=== PATIENT | male | born 1975 | race Caucasian/White ===

== ENCOUNTER 2020-12-01 18:58 | Emergency (ER) | payer BC ==
[~2020-12-01] VITALS: Ht 185.4 cm; Wt 104.5 kg
--- NOTE | 2020-12-01 19:08 | PHYS DOC ---
Past History Attending Co-Sign The patient was seen and interviewed as well as examined at the bedside. The chart was reviewed. The case was discussed. Agree with the plan of care. (CHANI CHAUHAN DO) General Adult EDM: Chief Complaint: SHORTNESS OF BREATH HPI: HPI: Patient is a 45-year-old male being seen in the ER today for chest fluttering sensation in the left side of his chest for 2 months. Patient is also reporting shortness of breath when the fluttering sensation occurs. He denies any chest pain, cough, abdominal pain, nausea, vomiting, fever. He denies any medical history. (ALEXA ALFREDO APRN) Review of Systems: Review of Systems: 14 body systems of the review of systems have been reviewed. See HPI for per tinent positive and negative responses, otherwise all other systems are negative, nonpertinent or noncontributory (ALEXA ALFREDO APRN) Allergies: Allergies: Allergies Coded Allergies Type Severity Reaction Last Updated Verified cyclobenzaprine Allergy Unknown 12/01/20 Yes (ALEXA ALFREDO APRN) Physical Exam: PE: Constitutional: Well developed, well nourished, no acute distress, non-toxic appearance. [] HENT: Normocephalic, atraumatic Eyes: PERRL, conjunctiva normal, no discharge. [] Neck: Normal range of motion, no stridor Cardiovascular:Heart rate bradycardia rhythm, no murmur [] Lungs & Thorax: Bilateral breath sounds clear to auscultation [] Abdomen: Bowel sounds normal, soft, no tenderness, no masses, no pulsatile masses. [] Skin: Warm, dry, no erythema, no rash. [] Back: No tenderness, normal range of motion Extremities: No tenderness, no cyanosis, no clubbing, ROM intact, no edema. [] Neurologic: Alert and oriented X 3, normal motor function, normal sensory function, no focal deficits noted. [] Psychologic: Affect normal, judgement normal, mood normal. [] (ALEXA ALFREDO APRN) Current Patient Data: Labs: Laboratory Tests Test 12/01/20 19:12 White Blood Count 6.2 x10^3/uL Red Blood Count 4.43 x10^6/uL Hemoglobin 14.6 g/dL Hematocrit 41.9 % Mean Corpuscular Volume 95 fL Mean Corpuscular Hemoglobin 33 pg Mean Corpuscular Hemoglobin Concent 35 g/dL Red Cell Distribution Width 13.0 % Platelet Count 190 x10^3/uL Neutrophils (%) (Auto) 53 % Lymphocytes (%) (Auto) 38 % Monocytes (%) (Auto) 7 % Eosinophils (%) (Auto) 1 % Basophils (%) (Auto) 1 % Neutrophils # (Auto) 3.3 x10^3uL Lymphocytes # (Auto) 2.3 x10^3/uL Monocytes # (Auto) 0.4 x10^3/uL Eosinophils # (Auto) 0.1 x10^3/uL Basophils # (Auto) 0.0 x10^3/uL Sodium Level 143 mmol/L Potassium Level 4.0 mmol/L Chloride Level 106 mmol/L Carbon Dioxide Level 28 mmol/L Anion Gap 9 Blood Urea Nitrogen 16 mg/dL Creatinine 1.0 mg/dL Estimated GFR (Cockcroft-Gault) 81.2 BUN/Creatinine Ratio 16 Glucose Level 90 mg/dL Calcium Level 8.8 mg/dL Total Bilirubin 0.4 mg/dL Aspartate Amino Transf (AST/SGOT) 29 U/L Alanine Aminotransferase (ALT/SGPT) 42 U/L Alkaline Phosphatase 50 U/L Total Protein 6.9 g/dL Albumin 4.1 g/dL Albumin/Globulin Ratio 1.5 (ALEXA ALFREDO APRN) EKG: EKG: EKG performed at 1906 shows sinus bradycardia no STEMI (ALEXA ALFREDO APRN) Radiology/Procedures: Radiology/Procedures: PROCEDURE: CHEST PA & LATERAL Chest, PA and Lateral: Technique: PA and lateral views of the chest were obtained. History: Left-sided chest pain. Comparison: None. Findings: The heart and pulmonary vasculature appear within normal limits. The lungs are clear. The pleural margins are clear. Impression: No acute chest process is seen. Electronically signed by: Justin Patten MD (12/01/2020 7:38 PM) [id number] DICTATED AND SIGNED BY: JUSTIN PATTEN MD DATE: 12/01/201935 CC: MATTHEW HARRISON MD; ALEXA ALFREDO APRN ~MTH0 0 (ALEXA ALFREDO APRN) Heart Score: C/O Chest Pain: Yes HEART Score for Chest Pain: HEART Score for Chest Pain Response (Comments) Value History Slighlty/Non-Suspicious 0 ECG Normal 0 Age < 45 0 Risk Factors No Risk Factors 0 Troponin < Normal Limit 0 Total 0 Risk Factors: Risk Factors: DM, Current or recent (<one month) smoker, HTN, HLP, family history of CAD, obesity. Risk Scores: Score 0 - 3: 2.5% MACE over next 6 weeks - Discharge Home Score 4 - 6: 20.3% MACE over next 6 weeks - Admit for Clinical Observation Score 7 - 10: 72.7% MACE over next 6 weeks - Early Invasive Strategies (ALEXA ALFREDO APRN) Course & Med Decision Making: Course & Med Decision Making Pertinent Labs and Imaging studies reviewed. (See chart for details) Patient is seen in the ER today for chest fluttering. His work-up in the ER consisted of blood work, EKG, and a chest x-ray. CBC CMP unremarkable. EKG shows sinus bradycardia with no STEMI. Chest x-ray is negative for any acute findings. Vital signs stable. Patient has no medical history. He has no c omplaints of chest pain. I discussed with patient all findings and diagnostic testing as well as the need to follow-up with PCP for further evaluation and treatment or return to the ER if any new or worsening symptoms. Strict return precautions were also discussed at length. Patient voiced understanding and agreement with the plan. Patient is hemodynamically stable at the time of disposition. Patient's case discussed with supervising physician. (ALEXA ALFREDO APRN) Dragon Disclaimer: Dragon Disclaimer: This electronic medical record was generated, in whole or in part, using a voice recognition dictation system. (ALEXA ALFREDO APRN) Departure Departure: Impression: Primary Impression: Palpitation Disposition: HOME / SELF CARE / HOMELESS Condition: GOOD Referrals: MATTHEW HARRISON MD (PCP) Patient Instructions: Palpitations Additional Instructions: Thank you for choosing [facility] [place] and allowing me to participate in your care. You were seen in the ER today for a fluttering sensation in your chest. As we have discussed your findings do not indicate that you are having a cardiac event at this time.Your evaluation in the ER consisted of blood work, EKG, chest x-ray. Your blood work is unremarkable. Your chest x-ray is negative for any acute findings. Your EKG shows a slower heart rate but no signs of having ACS at this time. It is necessary that you follow-up with your primary care provider tomorrow regarding your ER visit today. Please return to the ER if you develop chest pain, worsening of your fluttering sensation, shortness of breath, palpitations, lightheadedness, shortness of breath, fevers. EMERGENCY DEPARTMENT GENERAL DISCHARGE INSTRUCTIONS Thank you for coming to [facility] (ED) today and trusting us with you care. We trust that you had a positivie experience in our Emergency Department. If you wish to speak to the department management, you may call the director at [phone]. YOUR FOLLOW UP INSTRUCTIONS ARE FOLLOWS: 1. Do you have a private Doctor? If you do not have a private doctor, please ask for a resource list of physicians or clinics that may be able to assist you with follow up care. 2. The Emergency Physician has interpreted your x-rays. The X-Ray specialist will also review them. If there is a change in the findings, you will be notified in 48 hours when at all possible. 3. A lab test or culture has been done, your results will be reviewed and you will be notified if you need a change in treatment. ADDITIONAL INSTRUCTIONS AND INFORMATION: 1. Your care today has been supervised by a physician who is specially trained in emergency care. Many problems require more than one evaluation for a complete diagnosis and treatment. We recommend that you schedule your follow up appointment as recommended to ensure complete treatment of you illness or injury. If you are unable to obtain follow up care and continue to have a problem, or if your condition worsens, we recommend that you return to the ED. 2. We are not able to safely determine your condition over the phone nor are we able to give sound medical advice over the phone. For these safety reasons, if you call for medical advice we will ask you to come to the ED for further evaluation. 3. If you have any questions regarding these discharge instructions please call the ED at [phone]. SAFETY INFORMATION: In the interest of safety, wellness, and injury prevention; we encourage you to wear your sealbelt, if you smoke; quite smoking, and we encourage family to use a prot ective helmet for bicycling and other sporting events that present an increased risk for head injury. IF YOUR SYMPTOMS WORSEN OR NEW SYMPTOMS DEVELOP, OR YOU HAVE CONCERNS ABOUT YOUR CONDITION; OR IF YOUR CONDITION WORSENS WHILE YOU ARE WAITING FOR YOUR FOLLOW UP APPOINTMENT; EITHER CONTACT YOUR PRIMARY CARE DOCTOR, THE PHYSICIAN WHOSE NAME AND NUMBER YOU WERE GIVEN, OR RETURN TO THE ED IMMEDIATELY. ALEXA ALFREDO APRN Dec 01, 2020 19:08 CHANI CHAUHAN DO Dec 03, 2020 12:13
[2020-12-01 19:40] LABS: BASO % 1 % (0-3); EOS # 0.1 x10^3/uL (0.0-0.7); EOS % 1 % (0-3); HEMATOCRIT 41.9 % (39.0-53.0); HEMOGLOBIN 14.6 g/dL (13.0-17.5); LYMPH # 2.3 x10^3/uL (1.0-4.8); LYMPH % 38 % (24-48); MEAN CORPUSCULAR HEMOGLOBIN 33 pg (25-35); MEAN CORPUSCULAR HGB CONC 35 g/dL (31-37); MEAN CORPUSCULAR VOLUME 95 fL (79-100); MONO # 0.4 x10^3/uL (0.0-1.1); MONO % 7 % (0-9); NEUT # 3.3 x10^3uL (1.8-7.7); NEUT % 53 % (31-73); PLATELET COUNT 190 x10^3/uL (140-400); RED BLOOD COUNT 4.43 x10^6/uL (4.30-5.70); WHITE BLOOD COUNT 6.2 x10^3/uL (4.0-11.0)
--- NOTE | 2020-12-01 19:41 | RAD ---
Chest, PA and Lateral: Technique: PA and lateral views of the chest were obtained. History: Left-sided chest pain. Comparison: None. Findings: The heart and pulmonary vasculature appear within normal limits. The lungs are clear. The pleural ma rgins are clear. Impression: No acute chest process is seen. Electronically signed by: Justin Westfall MD (12/01/2020 7:38 PM) [id number]
[2020-12-01 19:49] VITALS: BP 111/72
[2020-12-01 19:56] LABS: CALCIUM 8.8 mg/dL (8.5-10.1); GFR 81.2
[2020-12-01 20:02] LABS: ALBUMIN 4.1 g/dL (3.4-5.0); ALBUMIN/GLOBULIN RATIO 1.5 (1.0-1.7); TOTAL BILIRUBIN 0.4 mg/dL (0.2-1.0); TOTAL PROTEIN 6.9 g/dL (6.4-8.2)
--- NOTE | 2020-12-01 21:17 | EKG ---
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
== END 2020-12-01 20:56 | disposition home or self-care (01) ==
LOC: ER 18:58
DX: R00.2 Palpitations (principal); R06.02 Shortness of breath; Z88.8 Allergy status to other drugs, medicaments and biological substances
CPT/HCPCS: 36415; 71046; 80053; 84484; 85025; 93005; 99285

== ENCOUNTER 2021-07-19 22:56 | Emergency (ER) | payer BC ==
[~2021-07-19] VITALS: Ht 185.4 cm; Wt 104.5 kg
--- NOTE | 2021-07-19 23:25 | EKG ---
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
--- NOTE | 2021-07-19 23:29 | PHYS DOC ---
Past History Past Surgical History: Other Additional Past Surgical Histo: right knee surgery Alcohol Use: Occasionally General Adult EDM: Chief Complaint: SHORTNESS OF BREATH HPI: HPI: 46-year-old male presents with coughing and shortness of breath. The patient was feeling well earlier today. 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 He has had a cough with a scant amount of red blood. This was also accompanied by some central chest heaviness so the patient decided come in for evaluation. He has no history of chest pain or shortness of breath in the past. No history of asthma or COPD. He has not a smoker. No current chest pain at this time. Review of Systems: Review of Systems: Constitutional: Denies fever or chills Eyes: Denies change in visual acuity HENT: Denies nasal congestion or sore throat Respiratory: Cough with shortness of breath Cardiovascular: Chest pain now resolved. GI: Denies abdominal pain, nausea, vomiting, bloody stools or diarrhea : Denies dysuria Musculoskeletal: Denies back pain or joint pain Integument: Denies rash Neurologic: Denies headache, focal weakness or sensory changes Endocrine: Denies polyuria or polydipsia Lymphatic: Denies swollen glands Psychiatric: Denies depression or anxiety Allergies: Allergies: Allergies Coded Allergies Type Severity Reaction Last Updated Verified cyclobenzaprine Allergy Unknown 12/01/20 Yes Physical Exam: PE: Constitutional: Well developed, well nourished, obese, no acute distress, non- toxic appearance. [] HENT: Normocephalic, atraumatic, bilateral external ears normal, oropharynx moist, no oral exudates, nose normal. [] Eyes: PERRLA, EOMI, conjunctiva normal, no discharge. [] Neck: Normal range of motion, no tenderness, supple, no stridor. [] Cardiovascular: Heart rate regular rhythm, no murmur [] Lungs & Thorax: Bilateral breath sounds clear to auscultation [] Abdomen: Bowel sounds normal, soft, no tenderness, no masses, no pulsatile masses. [] Skin: Warm, dry, no erythema, no rash. [] Back: No tenderness, no CVA tenderness. [] Extremities: No tenderness, no cyanosis, no clubbing, ROM intact, no edema. [] Neurologic: Alert and oriented X 3, normal motor function, normal sensory function, no focal deficits noted. [] Psychologic: Affect normal, judgement normal, mood concerned. [] Current Patient Data: Vital Signs: Vital Signs Date Time Temp Pulse Resp B/P (MAP) Pulse Ox O2 Delivery O2 Flow Rate FiO2 07/19/21 22:56 98.6 85 18 147/93 (111) 96 Room Air EKG: EKG: [] Radiology/Procedures: Radiology/Procedures: [] Impressions: EXAM: XR CHEST 1V 07/19/2021 11:31 PM CLINICAL INDICATION: Shortness of breath COMPARISON: Chest radiograph 12/01/2020 TECHNIQUE: AP upright view of the chest FINDINGS: The heart and mediastinum are normal. Lungs are well-expanded. There are new mild bibasilar opacities, greater on the left. No pleural effusion or pneumothorax. No acute osseous abnormality. IMPRESSION: New mild bibasilar opacities suspicious for pneumonia, greater on the left. Electronically signed by: Marilin Alonzo MD (07/20/2021 12:24 AM) [facility] DICTATED AND SIGNED BY: MARILIN ALONZO MD DATE: 07/20/21 0023 CC: CHANI CHAUHAN DO; MATTHEW HARRISON MD ~MTH0 0 Heart Score: C/O Chest Pain: Yes HEART Score for Chest Pain: HEART Score for Chest Pain Response (Comments) Value History Slighlty/Non-Suspicious 0 ECG Normal 0 Age >45 - < 65 1 Risk Factors 1 or 2 Risk Factors 1 Troponin < Normal Limit 0 Total 2 Risk Factors: Risk Factors: DM, Current or recent (<one month) smoker, HTN, HLP, family history of CAD, obesity. Risk Scores: Score 0 - 3: 2.5% MACE over next 6 weeks - Discharge Home Score 4 - 6: 20.3% MACE over next 6 weeks - Admit for Clinical Observation Score 7 - 10: 72.7% MACE over next 6 weeks - Early Invasive Strategies Course & Med Decision Making: Course & Med Decision Making Pertinent Labs and Imaging studies reviewed. (See chart for details) The patient's chest x-ray is suggestive of bibasilar opacities worse on the left, likely pneumonia. I will treat him with Rocephin and azithromycin in the emergency room and discharge him on azithromycin. We have also ordered an inf luenza with COVID-19 rapid test. The patient will be notified of the results as necessary. The patient's labs are unremarkable. He is stable for discharge at this time. [] Dragon Disclaimer: Dragleo Disclaimer: This electronic medical record was generated, in whole or in part, using a voice recognition dictation system. Departure Departure: Impression: Primary Impression: Pneumonia Disposition: HOME / SELF CARE / HOMELESS Condition: STABLE Referrals: MATTHEW HARRISON MD (PCP) Patient Instructions: Pneumonia, Adult, [id number] Scripts Azithromycin (AZITHROMYCIN TABLET) 250 Mg Tablet 250 MG PO DAILY for ANTI-BIOTIC for 4 Days, #4 TAB 0 Refills Prov: CHANI CHAUHAN DO 07/20/21 CHANI CHAUHAN DO Jul 19, 2021 23:29
[2021-07-19] MEDS ORDERED: ALBUTEROL SULFATE 8GM INHALER. INH ONE (23:45)
[2021-07-20 00:01] LABS: BASO % 1 % (0-3); EOS # 0.1 x10^3/uL (0.0-0.7); EOS % 1 % (0-3); HEMATOCRIT 42.3 % (39.0-53.0); HEMOGLOBIN 14.5 g/dL (13.0-17.5); LYMPH # 1.2 x10^3/uL (1.0-4.8); LYMPH % 20 % (24-48); MEAN CORPUSCULAR HEMOGLOBIN 33 pg (25-35); MEAN CORPUSCULAR HGB CONC 34 g/dL (31-37); MEAN CORPUSCULAR VOLUME 95 fL (79-100); MONO # 0.2 x10^3/uL (0.0-1.1); MONO % 3 % (0-9); NEUT # 4.5 x10^3uL (1.8-7.7); NEUT % 75 % (31-73); PLATELET COUNT 159 x10^3/uL (140-400); RED BLOOD COUNT 4.45 x10^6/uL (4.30-5.70); RED CELL DISTRIBUTION WIDTH 12.9 % (11.5-14.5)
[2021-07-20 00:15] LABS: CALCIUM 8.8 mg/dL (8.5-10.1); GFR 80.8; POTASSIUM 3.8 mmol/L (3.5-5.1)
[2021-07-20 00:21] LABS: ALBUMIN 3.9 g/dL (3.4-5.0); ALBUMIN/GLOBULIN RATIO 1.4 (1.0-1.7); TOTAL BILIRUBIN 0.4 mg/dL (0.2-1.0); TOTAL PROTEIN 6.6 g/dL (6.4-8.2)
--- NOTE | 2021-07-20 00:26 | RAD ---
EXAM: XR CHEST 1V 07/19/2021 11:31 PM CLINICAL INDICATION: Shortness of breath COMPARISON: Chest radiograph 12/01/2020 TECHNIQUE: AP upright view of the chest FINDINGS: The heart and mediastinum are normal. Lungs are well-expanded. There are new mild bibasil ar opacities, greater on the left. No pleural effusion or pneumothorax. No acute osseous abnormality. IMPRESSION: New mild bibasilar opacities suspicious for pneumonia, greater on the left. Electronically signed by: Marilin Alonzo MD (07/20/2021 12:24 AM) [facility]
[2021-07-20] MEDS ORDERED: AZIT250T6 PO (00:43)
[2021-07-20] MEDS ORDERED: cefTRIAXone SODIUM 1 GM VIAL ONE (00:52)
[2021-07-20] MEDS ORDERED: IV NORMAL SALINE 50ML 50 ML ONE (00:52)
[2021-07-20] MEDS ORDERED: AZITHROMYCIN 250 MG TABLET. PO ONE (01:00)
[2021-07-20 01:21] LABS: INFLUENZA A PATIENT NEGATIVE (NEGATIVE); INFLUENZA B PATIENT NEGATIVE (NEGATIVE)
[2021-07-20 01:35] VITALS: BP 160/90
== END 2021-07-20 01:35 | disposition home or self-care (01) ==
LOC: ER 22:56
DX: J18.9 Pneumonia, unspecified organism (principal); Z20.822 Contact with and (suspected) exposure to COVID-19; Z88.8 Allergy status to other drugs, medicaments and biological substances
CPT/HCPCS: 36415; 71045; 80053; 84484; 85025; 87428; 93005; 94640; 96365; 99285; J0696; 94664